=== PATIENT | male | born 1930 | race Caucasian/White ===

== ENCOUNTER 2020-11-15 12:54 | Emergency (ER) | payer MEDICARE, OTHER ==
[~2020-11-15] VITALS: Ht 182.9 cm; Wt 108.9 kg
[2020-11-15] MEDS ORDERED: BICALUTAMIDE50 MG PO (13:42)
[2020-11-15] MEDS ORDERED: VITAMIN B-121000 MC1 PO (13:43)
[2020-11-15] MEDS ORDERED: CYMBALTA20 MG PO (13:44)
[2020-11-15] MEDS ORDERED: FERROUS SULFAT325 MG PO (13:45)
[2020-11-15] MEDS ORDERED: LIDOCAINE1 EACH TP (13:46)
[2020-11-15] MEDS ORDERED: LISINOPRIL20 MG PO (13:46)
[2020-11-15] MEDS ORDERED: MIRALAX17 GM PO (13:47)
[2020-11-15] MEDS ORDERED: MIRAPEX0.125 MG PO (13:48)
[2020-11-15] MEDS ORDERED: VITAMIN C500 M5 PO (13:49)
[2020-11-15] MEDS ORDERED: FLOMAX0.4 MG PO (13:49)
[2020-11-15] MEDS ORDERED: REFRESH TEARS15 ML OPTH (13:50)
[2020-11-15] MEDS ORDERED: SENNA PLUS 8.61 EACH PO (13:51)
[2020-11-15] MEDS ORDERED: ACIDOPHILUS1 EAC4 PO (13:52)
[2020-11-15] MEDS ORDERED: DULCOLAX10 MG PR (13:53)
[2020-11-15] MEDS ORDERED: ACETAMINOPHEN325 M1 PO (13:53)
--- NOTE | 2020-11-15 20:06 | EKG ---
[facility] [address] [facility] [place] [address] Signed Sinus rhythm with premature atrial complexes Left anterior fascicular block Abnormal ECG No previous ECGs available Confirmed by RUSS KLEIN DO ([id number]) on 11/15/2020 8:06:27 PM Electronically Signed By: RUSS KLEIN DO 11/15/202005 PATIENT NAME: SHAKA FAIR Electrocardiogram DATE OF : [birth year] PHYSICIAN: RUSS KLEIN DO REPORT #: [id number] REPORT IS CONFIDENTIAL AND NOT TO BE RELEASED WITHOUT AUTHORIZATION
== END 2020-11-15 16:15 | disposition home or self-care (01) ==
LOC: ED 12:54
DX: U07.1 COVID-19 (principal); F64.9 Gender identity disorder, unspecified; Z79.899 Other long term (current) drug therapy
CPT/HCPCS: 71045; 80053; 85025; 93005; 93010; 99285-25; M0243; Q0244

== ENCOUNTER 2020-12-09 08:41 | Emergency (ER) | payer MEDICARE, OTHER ==
[~2020-12-09] VITALS: Ht 182.9 cm; Wt 108.9 kg
[~2020-12-09 08:41] MED LIST: ACETAMINOPHEN325 M1 PO; ACIDOPHILUS1 EAC4 PO; BICALUTAMIDE50 MG PO; CYMBALTA20 MG PO; DULCOLAX10 MG PR; FERROUS SULFAT325 MG PO; FLOMAX0.4 MG PO; LIDOCAINE1 EACH TP; LISINOPRIL20 MG PO; MIRALAX17 GM PO; MIRAPEX0.125 MG PO; REFRESH TEARS15 ML OPTH; SENNA PLUS 8.61 EACH PO; VITAMIN B-121000 MC1 PO; VITAMIN C500 M5 PO
--- OUTSIDE RECORDS SUMMARY | 2020-12-09 08:44 | XMS ---
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 Daniel has no Care Guidelines for this patient. [facility] (12 MO.) [facility] NOTE: Visits indicate total known visits. ED/C VISIT TRACKING (12 MO.) [facility]2020 08[facility] COMPLAINT: - FALL, WEAKNESS 11/15/2020 12:[address] [facility] [place] TYPE: Emergency COMPLAINT: - CHEST PAIN, COVID+ DIAGNOSES: - COVID-19 - COVID-19 - Chest pain, unspecified - Gender identity disorder, unspecified - Other terminal gauger (current) drug therapy INPATIENT VISIT TRACKING (12 MO.) No inpatient visits to display in this time frame [email or web address]
[2020-12-09] MEDS ORDERED: VENTOLIN HFA18 GM INH (13:04)
--- NOTE | 2020-12-12 14:29 | EKG ---
[facility] [address] [place] [address] Signed Normal sinus rhythm Left anterior fascicular block Cannot rule out Inferior infarct (masked by fascicular block?) , age undetermined Cannot rule out Anterior infarct , age undetermined Abnormal ECG When compared with ECG of 15-NOV-2020 12:59, premature atrial complexes are no longer present Minimal criteria for Anterior infarct are now present Confirmed by DANAE CHOU MD ([id number]) on 12/12/2020 2:29:16 PM Electronically Signed By: DANAE CHOU MD 12/12/20 1429 PATIENT NAME: SHAKA FAIR Electrocardiogram DATE OF : [birth year] PHYSICIAN: DANAE CHOU MD REPORT #: [id number] REPORT IS CONFIDENTIAL AND NOT TO BE RELEASED WITHOUT AUTHORIZATION
== END 2020-12-09 13:29 | disposition home or self-care (01) ==
LOC: ED 08:41
DX: U07.1 COVID-19 (principal); R53.1 Weakness; I10 Essential (primary) hypertension; Z85.46 Personal history of malignant neoplasm of prostate; Z79.899 Other long term (current) drug therapy
CPT/HCPCS: 51701; 70450; 71045; 71260; 80053; 81001; 83735; 84484; 85025; 93005; 93010; 94640; 99285-25; Q9967